=== PATIENT | female | born 1980 | race African-American/Black ===

== ENCOUNTER 2016-09-25 12:27 | Emergency (ER) | payer BC, OTHER ==
[~2016-09-25] VITALS: Ht 160 cm; Wt 75.5 kg
[2016-09-25 12:29] VITALS: BP 170/92; PULSE 92; TEMP 98.7
== END 2016-09-25 12:58 | disposition left against medical advice (07) ==
LOC: COL.ER 12:27
DX: R42 Dizziness and giddiness (principal); Z53.21 Procedure and treatment not carried out due to patient leaving prior to being seen by health care provider